=== PATIENT | female | born 1950 | race Caucasian/White ===

== ENCOUNTER → 2016-08-17 | Outpatient (CLI) | payer OTHER | LOC: BMCIMAGING 12:11 | DX: Z12.31 Encounter for screening mammogram for malignant neoplasm of breast (principal); Z80.3 Family history of malignant neoplasm of breast | CPT/HCPCS: G0202 ==

== ENCOUNTER → 2016-08-29 | Outpatient (CLI) | payer OTHER | LOC: BMCIMAGING 10:17 | PROVIDERS: ATTEND Family Medicine | DX: Z12.39 Encounter for other screening for malignant neoplasm of breast (principal); N63 Unspecified lump in breast | CPT/HCPCS: G0206 ==

== ENCOUNTER → 2016-09-14 | Outpatient (CLI) | payer OTHER | LOC: BMCIMAGING 09:49 | PROVIDERS: ATTEND Internal Medicine Rheumatology | DX: M16.0 Bilateral primary osteoarthritis of hip (principal) ==

== ENCOUNTER → 2016-11-21 | Outpatient (CLI) | payer OTHER | LOC: FIMAGING 09:38 | PROVIDERS: ATTEND Orthopaedic Surgery | DX: Z01.818 Encounter for other preprocedural examination (principal); M25.851 Other specified joint disorders, right hip ==

== ENCOUNTER 2016-11-26 05:56 | Inpatient (IN) | payer OTHER ==
[~2016-11-26 05:56] MED LIST: TRANEXAMIC ACID 1,180 MG in NS 100 ML IV ONE
[2016-11-26] MEDS ORDERED: TRANEXAMIC ACID 1,180 MG in NS 100 ML IV ONE (06:00)
[2016-11-26] MEDS ORDERED: ROPIVACAINE 0.2% 80 MG, EPINEPHrine 0.2 MG, KETOROLAC TROMETHAMINE 30 MG, morphINE 10 M... IU ONE (06:00)
[2016-11-26] MEDS ORDERED: TRANEXAMIC ACID 3,000 MG in NS 50 ML IRR ONE (06:00)
[2016-11-26] MEDS ORDERED: ACETAMINOPHEN 325 MG TAB PO ONE (06:15)
[2016-11-26] MEDS ORDERED: FAMOTIDINE 20 MG TAB PO ONE (06:15)
[2016-11-26] MEDS ORDERED: ceFAZolin 2 GM/DEXTROSE 100 ML IV ONE (06:15)
[2016-11-26] MEDS ORDERED: LIDOCAINE 1% 2 ML INJ ID PRN (06:16)
[2016-11-26] MEDS ORDERED: LR 1,000 ML IV ONE (06:16)
[2016-11-26] MEDS ORDERED: METOCLOPRAMIDE 10 MG/2 ML VIAL IVP PRN (06:58)
[2016-11-26] MEDS ORDERED: DIAZEPAM 5 MG TAB PO PRN (06:58)
[2016-11-26] MEDS ORDERED: traMADol 50 MG TAB PO PRN (06:58)
[2016-11-26] MEDS ORDERED: LACTULOSE 20 GM/30 ML UDCUP PO PRN (06:58)
[2016-11-26] MEDS ORDERED: POLYETHYLENE GLYCOL 3350 17 GM PKT PO PRN (06:58)
[2016-11-26] MEDS ORDERED: DIPHENOXYLATE/ATROPINE LOMOTIL 1 TAB PO PRN (06:58)
[2016-11-26] MEDS ORDERED: BISACODYL 10 MG SUPP PR PRN (06:58)
[2016-11-26] MEDS ORDERED: diphenhydrAMINE 25 MG CAP PO PRN (06:58)
[2016-11-26] MEDS ORDERED: ONDANSETRON 4 MG/2 ML VIAL IVP PRN ×2 (06:58→09:14)
[2016-11-26] MEDS ORDERED: TEMAZEPAM 15 MG CAP PO PRN (06:58)
[2016-11-26] MEDS ORDERED: PROMETHAZINE HCL 25 MG SUPPR PR PRN (06:58)
[2016-11-26] MEDS ORDERED: ONDANSETRON DISINTEGRATING 4 MG TAB PO PRN (06:58)
[2016-11-26] MEDS ORDERED: MAGNESIUM HYDROXIDE 30 ML UDCUP PO PRN (06:58)
[2016-11-26] MEDS ORDERED: PHARMACY PAIN CONSULT 1 EA MISC PRN (06:58)
[2016-11-26] MEDS ORDERED: PROMETHAZINE HCL 25 MG/ML INJ IVP PRN (06:58)
--- NOTE | 2016-11-26 06:58 | PDHPUP ---
History & Physical Update H&P update statement: This history and physical update is based on an assessment of the patient which was completed after admission or registration (within 24 hours), but prior to the surgery/procedure.
[2016-11-26] MEDS ORDERED: LR 1,000 ML IV SCH (07:00)
--- NOTE | 2016-11-26 07:02 | PDIAF ---
- Diagnosis Diagnosis: right hip djd Code Status: Full Code - Medication Management Discharge Medications: Medications to Continue on Transfer Levothyroxine [Synthroid 50 mcg (*)] 50 mcg PO WESA 02/22/12 [Last Taken Unknown ] Estradiol [Estradiol 1 MG (*)] 2 mg PO DAILY 11/06/16 [Last Taken 1 Day Ago ~01/01] Herbals/Supplements -Info Only 1 ea PO DAILY 11/06/16 [Last Taken 1 Week Ago ~] Levothyroxine [Synthroid 75 mcg (*)] 75 mcg PO SUMOTUTHFR 11/06/16 [Last Taken 1 Day Ago ~11/25/16] celeCOXIB [Celebrex (*)] 200 mg PO BID 11/06/16 [Last Taken 11/20/16] Discharge Medications: Refer to the Discharge Home Medication list for PRN reason. - Orders Services needed: Physical Therapy Diet Recommendation: no restrictions on diet Diet Texture: Regular Texture Diet Activity/Weight Bearing Restrictions: wbat. anterior hip precautions. daily dressing changes. no soaking. may shower without bandage. seek attn for increasing redness, swelling, drainage, discharge. f/u at two weeks - Follow Up Care Current Providers and Referrals: Norberto Blandon MD [Primary Care Provider] -
--- NOTE | 2016-11-26 07:26 | PDANEPAE ---
ANE History of Present Illness 66 year old female presents for right total hip replacement. ANE Past Medical History - Cardiovascular History Hx Hypertension: No Hx Arrhythmias: No Hx Chest Pain: No Hx Coronary Artery / Peripheral Vascular Disease: No Hx CHF / Valvular Disease: No Hx Palpitations: No - Pulmonary History Hx COPD: No Hx Asthma/Reactive Airway Disease: No Hx Recent Upper Respiratory Infection: No Hx Oxygen in Use at Home: No Hx Sleep Apnea: No Sleep Apnea Screening Result - Last Documented: Negative - Neurologic History Hx Cerebrovascular Accident: No Hx Seizures: No Hx Dementia: No - Endocrine History Hx Diabetes: No Hypothyroid: Yes Hyperthyroid: No Obesity: no - Renal History Hx Renal Disorders: No - Liver History Hx Hepatic Disorders: No - Neurological & Psychiatric Hx Hx Neurological and Psychiatric Disorders: No - Cancer History Hx Cancer: No - Congenital Disorder History Hx Congenital Disorders: No - GI History GERD: no Hx Gastrointestinal Disorders: No - Other Health History Other Health History: NONE - Chronic Pain History Chronic Pain: Yes (LOWER BACK) - Surgical History Prior Surgeries: NONE ANE Review of Systems Review of systems is: negative Review of Systems: - Exercise capacity Exercise capacity: >=4 METS METS (RN): 5 METS ANE Patient History - Allergies Allergies/Adverse Reactions: No Known Allergies Allergy (Unverified 02/22/12 17:16) - Home Medications Home medications: home medication list seen and reviewed Home Medications: Levothyroxine [Synthroid 50 mcg (*)] 50 mcg PO WESA 02/22/12 [Last Taken Unknown ] Estradiol [Estradiol 1 MG (*)] 2 mg PO DAILY 11/06/16 [Last Taken 1 Day Ago ~01/01] Levothyroxine [Synthroid 75 mcg (*)] 75 mcg PO SUMOTUTHFR 11/06/16 [Last Taken 1 Day Ago ~11/25/16] RX: Herbals/Supplements -Info Only 1 ea PO DAILY 11/06/16 [Last Taken 1 Week Ago ~11/19/16] celeCOXIB [Celebrex (*)] 200 mg PO BID 11/06/16 [Last Taken 11/20/16] - NPO status NPO Status: no food or drink >8 hours NPO Since - Liquids (Date): 11/25/16 NPO Since - Liquids (Time): 20:00 NPO Since - Solids (Date): 09/10/17 NPO Since - Solids (Time): 20:00 - Anes Hx Anes Hx: post operative nausea - Smoking Hx Smoking Status: Never smoked - Alcohol Use Alcohol Use: Rarely - Family Anes Hx Family Anes Hx: neg - N/A Family Hx Anesthesia Complications: EXTREME NAUSEA THROUGHOUT FAMILY ANE Labs/Vital Signs - Vital Signs Vital Signs: reviewed preoperatively; see RN documention for details Height: 165.1 cm Weight: 58.967 kg ANE Physical Exam - Airway Neck exam: decreased ROM (Decreased extension) Mallampati Score: Class 2 Mouth exam: normal dental/mouth exam - Pulmonary Pulmonary: no respiratory distress - Cardiovascular Cardiovascular: regular rate and rhythym - ASA Status ASA Status: II ANE Anesthesia Plan Anesthesia Plan: MAC, spinal (Back-up plan is General Anesthesia - if need to provide general anesthesia, will do TIVA due to PONV history)
[2016-11-26] MEDS ORDERED: MIDAZOLAM 2 MG/2 ML VIAL IVP ONE (07:27)
[2016-11-26] MEDS ORDERED: PROPOFOL/EMULSION 500 MG/50 ML BOTTLE IV ONE ×2 (07:33→09:56)
[2016-11-26] MEDS ORDERED: CALCIUM CHLORIDE 1 GM/10 ML INJ ONE (07:48)
[2016-11-26] MEDS ORDERED: THROMBIN (BOVINE) 5,000 UNIT VIAL TP ONE ×2 (07:48→09:02)
[2016-11-26] MEDS ORDERED: ceFAZolin 1 GM/5 ML SYR ONE (07:49)
[2016-11-26] MEDS ORDERED: DEXAMETHASONE 4 MG/ML VIAL ONE (09:09)
[2016-11-26] MEDS ORDERED: ONDANSETRON 4 MG/2 ML VIAL ONE (09:09)
[2016-11-26] MEDS ORDERED: PHENYLEPHRINE HCL 100 MCG/ML SYR ONE (09:11)
[2016-11-26] MEDS ORDERED: HYDROmorphONE/DILAUDID 1 MG/ML INJ IVP PRN (09:14)
[2016-11-26] MEDS ORDERED: LR 500 ML IV PRN (09:14)
[2016-11-26] MEDS ORDERED: NALOXONE HCL 0.4 MG/ML INJ IVP PRN (09:14)
[2016-11-26] MEDS ORDERED: fentaNYL 100 MCG/2 ML INJ IVP PRN (09:14)
[2016-11-26] MEDS ORDERED: LEVOTHYROXINE 75 MCG TAB PO SCH (11:00)
[2016-11-26] MEDS: TRANEXAMIC ACID 650 MG TAB PO SCH ×3 (13:10→23:28)
[2016-11-26] MEDS: SENNOSIDES/DOCUSATE SODIUM TAB PO SCH ×2 (13:10→20:25)
[2016-11-26] MEDS: ACETAMINOPHEN 325 MG TAB PO SCH ×3 (13:19→23:28)
[2016-11-26] MEDS: oxyCODONE IR 5 MG TAB PO PRN ×3 (13:19→20:43)
[2016-11-26] MEDS: ceFAZolin 2 GM/DEXTROSE 100 ML IV SCH ×2 (15:10→23:29)
--- NOTE | 2016-11-26 16:43 | POSTANESTH ---
Post Anesthetic Evaluation Cardiovascular Status: Normal, Stable, Similar to Pre-Op Cond Respiratory Status: Normal, Stable, Similar to Pre-op Cond. Level of Consciousness/Mental Status: Can Participate in Eval, Alert and Oriented Pain Control: Adequate, Prn Tx Ordered Nausea/Vomiting Control: Adequate, Prn Tx Ordered Complications Possibly Related to Anesthesia: None Noted
[2016-11-26] MEDS: FAMOTIDINE 20 MG TAB PO SCH (20:25)
[2016-11-26] MEDS: ASPIRIN 325 MG TAB PO SCH (20:28)
[2016-11-26 23:44] VITALS: PULSE 65
[2016-11-27] MEDS: ACETAMINOPHEN 325 MG TAB PO SCH (05:10)
[2016-11-27 06:00] LABS: HEMATOCRIT 29.1 % (38.0-47.0); HEMOGLOBIN 9.8 g/dL (12.6-16.3)
--- NOTE | 2016-11-27 07:09 | PDIAF ---
- Diagnosis Diagnosis: right hip djd Code Status: Full Code - Medication Management Discharge Medications: Medications to Continue on Transfer Levothyroxine [Synthroid 50 mcg (*)] 50 mcg PO WESA 02/22/12 [Last Taken Unknown ] Estradiol [Estradiol 1 MG (*)] 2 mg PO DAILY 11/06/16 [Last Taken 1 Day Ago ~01/01] Herbals/Supplements -Info Only 1 ea PO DAILY 11/06/16 [Last Taken 1 Week Ago ~] Levothyroxine [Synthroid 75 mcg (*)] 75 mcg PO SUMOTUTHFR 11/06/16 [Last Taken 1 Day Ago ~11/25/16] celeCOXIB [Celebrex (*)] 200 mg PO BID 11/06/16 [Last Taken 11/20/16] Aspirin [Aspirin 325 mg (*)] 325 mg PO DAILY tab 11/27/16 [Last Taken Unknown] oxyCODONE IR [Oxycodone Ir (*)] 5 - 10 mg PO Q3HRS PRN #70 tab 11/27/16 [Last Taken Unknown] Discharge Medications: Refer to the Discharge Home Medication list for PRN reason. - Orders Services needed: Physical Therapy Diet Recommendation: no restrictions on diet Diet Texture: Regular Texture Diet Activity/Weight Bearing Restrictions: wbat. anterior hip precautions. daily dressing changes. no soaking. may shower without bandage. seek attn for increasing redness, swelling, drainage, discharge. f/u at two weeks - Follow Up Care Current Providers and Referrals: Norberto Blandon MD [Primary Care Provider] -
[2016-11-27 07:52] VITALS: BP 110/64; RESP 20; TEMP 97.5; O2SAT 97
--- NOTE | 2016-11-27 07:52 | GDS ---
[f rep st] DISCHARGE SUMMARY ADMIT DIAGNOSIS: Right hip degenerative joint disease. DISCHARGE DIAGNOSIS: Right hip degenerative joint disease. PROCEDURE: Right total hip arthroplasty. HISTORY OF PRESENT ILLNESS: The patient is a 66-year-old woman with end-stage arthritis to her right hip. She has interference with her activities of daily living. Clinical and radiographic features are consistent with hip arthritis. Given her persistent symptoms, I have recommended operative inter vention. She understood the risks, benefits, alternatives, and wished to proceed. Written consent w as signed and placed in patient's chart. HOSPITAL COURSE: The patient was admitted to hospital floor after uncomplicated total hip arthroplas ty. She tolerated the procedure well. She had no postoperative complications. At the time of disch arge, she is tolerating an oral diet. Her pain is well controlled on oral medicines. She is voiding without difficulty. Dressings are clean, dry, and intact. She has no calf swelling, tenderness. N egative Juan's bilaterally. X-rays are stable with anatomic position, concentric reduction and no f racture. DISCHARGE ACTIVITY: She is weightbearing as tolerated. Anterior hip precautions. Daily dressing ch anges. No soaking or immersion. May shower without the bandage. FOLLOWUP: 2 weeks. DISCHARGE MEDICATIONS: Oxycodone 5 mg 1-2 every 3 hours p.r.n. pain and aspirin 325 mg p.o. daily. /[id number]/MODL
[2016-11-27] MEDS: ASPIRIN 325 MG TAB PO SCH (08:13)
[2016-11-27] MEDS: FAMOTIDINE 20 MG TAB PO SCH (08:14)
[2016-11-27] MEDS: SENNOSIDES/DOCUSATE SODIUM TAB PO SCH (08:14)
[2016-11-27] MEDS ORDERED: ESTRADIOL 1 MG TAB PO SCH (09:00)
--- NOTE | 2016-11-27 09:54 | ASMTCMCOM ---
CM Note CM Note Notes: Patient medically ready for for discharge. Physical Therapy recommending home with outpatient PT. Met with patient to discuss discharge plan, declines the need for Home Health Care, has good support at home. No CM needs identified at this time. CM available should something change. Date Signed: 11/27/2016 09:53 AM Electronically Signed By:Idalmis Foster RN
--- NOTE | 2016-11-27 14:41 | ASDISCHSUM ---
Discharge Information Plan Status:Home with No Needs Medically Cleared to Leave: Discharge Date:11/27/2016 10:25 AM CM D/C Disposition:Home, Routine, Self-Care ADT D/C Disposition:Home, Routine, Self-Care Projected Discharge Date:11/27/2016 10:25 AM Transportation at D/C:Family Discharge Delay Reason: Follow-Up Date:11/27/2016 10:25 AM Discharge Slot: Final Diagnosis: Placement Information Patient Contact Information Contact Name:RONY Relationship:Kyle Address: Work Phone: City: [facility] Phone: State/Zip Code: Email: Financial Information Financial Class: Primary Plan Desc:MEDICARE INPATIENT Primary Plan Number:[id number] Secondary Plan Desc:ANNITA RASHIDNITY Secondary Plan Number:[id number] Assessment Information BC CM Progress Note CM Note CM Note Notes: Patient medically ready for for discharge. Physical Therapy recommending home with outpatient PT. Met with patient to discuss discharge plan, declines the need for Home Health Care, has good support at home. No CM needs identified at this time. CM available should something change. Date Signed: 11/27/2016 09:53 AM Electronically Signed By:Idalmis Foster RN Intervention Information
[2016-11-28] MEDS ORDERED: LEVOTHYROXINE 50 MCG TAB PO SCH (07:00)
--- NOTE | 2016-11-30 14:15 | GOP ---
[f rep st] OPERATIVE REPORT DATE OF OPERATION: 11/26/2016 SURGEON: Guillermo Rm MD PREOPERATIVE DIAGNOSIS: Right hip degenerative joint disease. POSTOPERATIVE DIAGNOSIS: Right hip degenerative joint disease. PROCEDURE PERFORMED: Right total hip arthroplasty-MAKOplasty. FINDINGS: SPECIMENS: To pathology, the femoral head. INDICATIONS: The patient is a 66-year-old woman who has end-stage arthritis to her right hip. Clini gayathri and radiographic features are consistent with this. She has failed all attempts at conservative management. I have therefore recommended operative intervention with total hip arthroplasty. She un derstood the risks, benefits, and alternatives, and wished to proceed. Written consent was signed an d placed in the patient's chart. DESCRIPTION OF PROCEDURE: The patient was identified in the preanesthesia area. The right hip clear ly demarcated as operative site with indelible marker. She was given 2 g of Ancef intravenously en r oute to the operative suite. In the OR, general endotracheal anesthesia was administered. She was p ositioned in the supine position. The pelvis and both lower extremities were sterilely prepped and d raped in usual fashion. Appropriate time-out procedure was carried out. Attention was first turned to the left hemipelvis. A 2 cm incision was made over the iliac crest, 3 pins were placed into the p elvic ilium, and the pelvic reference array for the MAKOplasty protocol was affixed. Attention was t hen turned to the right hip. An anterior approach was made. Thick subcutaneous flaps were elevated. The fascia overlying the tensor fascia eber was then elevated, the tensor retracted in lateral dire ction. The underlying vascular structures were identified, ligated, and transected. The rectus was elevated off the anterior capsule, and Hohmann retractors were placed over the medial and superior as pect of the femoral neck. A T was made in the capsule. The retractors were placed into an intracaps ular position. A checkpoint was then placed. The bony wedge from the femoral neck was removed, as w ere the remnants from the femoral head. There was gross eburnation of the bone consistent with end-s tage hip arthritis. Retractors were placed, facilitating full visualization of the underlying acetab ulum. The remnants of the acetabular labrum were sharply excised. The bony landmarks to the acetabu lum were entered into the computer in standard fashion using the MAKOplasty assistance. A single-sta ge reaming using a 54 mm outer diameter reamer was then placed, with an opening angle of 40 degrees a nd anteversion of 20 degrees. A 54 mm titanium shell was impacted, confirmed to be fully seated. A single 6.5 mm cancellous screw was placed through the superior hole. The Trident X3 0-degree polyeth ylene liner was then placed and confirmed to be fully seated. Attention was then turned to the femur. This was delivered through the wound with use of retractors, soft tissue releases, and extension of the table to 25 degrees. The proximal canal was then opened. Serial broaching was carried out to a size 4 stem, and a trial reduction with 127 degree size 4 norma m was carried out. Ultimately, a size 4 stem was selected as the final implant. This was placed and impacted to the stable position across the opening of the trunnion. Serial trialing was carried out , and a 36 mm minus 5 mm Biolox head was then impacted across the cleansed trunnion. The hip was the n copiously irrigated, and reduced leg lengths were equal. Stability profile revealed full extension and external rotation to 90 degrees and traction without instability, and intraoperative fluoroscopy confirmed appropriate positioning of the components. The wounds were then irrigated with pulsatile lavage solution, closed in layers using 0 Vicryl, 2-0 M onocryl, and lior. The margins were instilled with a joint cocktail of ropivacaine, morphine, Tor adol, and epinephrine. A sterile compressive dressing was applied to both sides. The patient was aw akened, taken to recovery in good, stable condition. TOTAL TOURNIQUET TIME: None. COMPLICATIONS: None. IMPLANTS: The [place] Tritanium acetabular shell, size 54 mm; Trident X3 0-degree polyethylene inser t, 36 mm; 6.5 mm screw, 25 mm in length; accolade 227-degree neck angle hip stem size 4; and a Biolox Delta ceramic head, 36 mm minus 5 mm neck length. DISPOSITION: To the recovery room then the floor. She is weightbearing. Range of motion as tolerat ed with anterior hip precautions, and will follow standard recovery. /[id number]/MODL
== END 2016-11-27 10:25 | disposition home or self-care (01) | DRG 470 ==
LOC: F3N 05:56
PROVIDERS: ADMIT Orthopaedic Surgery; ATTEND Orthopaedic Surgery
PROC: 0SR904Z Replacement of Right Hip Joint with Ceramic on Polyethylene Synthetic Substitute, Open Approach (ICD-10-PCS; principal; 2016-11-26 14:15)
DX: M16.11 Unilateral primary osteoarthritis, right hip (principal); E03.9 Hypothyroidism, unspecified
CPT/HCPCS: 97116-GP; 97161-GP; C1713; G8978-GP-CI; G8979-GP-CI; G8980-GP-CI; J0171; J0690; J1100; J1885; J2250; J2370; J2405; J2704; J2795

== ENCOUNTER → 2017-01-16 | Outpatient (CLI) | payer OTHER | LOC: BMCIMAGING 10:20 | PROVIDERS: ATTEND Orthopaedic Surgery | DX: Z47.1 Aftercare following joint replacement surgery (principal); Z96.641 Presence of right artificial hip joint; M16.12 Unilateral primary osteoarthritis, left hip ==

== ENCOUNTER → 2017-02-25 | Outpatient (CLI) | payer OTHER | LOC: FIMAGING 10:39 | PROVIDERS: ATTEND Orthopaedic Surgery | DX: M16.12 Unilateral primary osteoarthritis, left hip (principal); Z96.641 Presence of right artificial hip joint ==

== ENCOUNTER 2017-03-04 05:58 | Inpatient (IN) | payer OTHER ==
[2017-03-04] MEDS ORDERED: ROPIVACAINE 0.2% 80 MG, EPINEPHrine 0.2 MG, KETOROLAC TROMETHAMINE 30 MG, morphINE 10 M... IU ONE (06:00)
[2017-03-04] MEDS ORDERED: TRANEXAMIC ACID 1,200 MG in NS 100 ML IV ONE (06:00)
--- NOTE | 2017-03-04 06:18 | PDANEPAE ---
ANE History of Present Illness 66 yo female with OA s/p R MANJULA in Nov 2016 now for L MANJULA. ANE Past Medical History - Cardiovascular History Hx Hypertension: No Hx Arrhythmias: No Hx Chest Pain: No Hx Coronary Artery / Peripheral Vascular Disease: No Hx CHF / Valvular Disease: No Hx Palpitations: No - Pulmonary History Hx COPD: No Hx Asthma/Reactive Airway Disease: No Hx Recent Upper Respiratory Infection: No Hx Oxygen in Use at Home: No Hx Sleep Apnea: No Sleep Apnea Screening Result - Last Documented: Negative - Neurologic History Hx Cerebrovascular Accident: No Hx Seizures: No Hx Dementia: No - Endocrine History Hx Diabetes: No Hypothyroid: Yes Obesity: no Endocrine History Comment: hypothyroidism - Renal History Hx Renal Disorders: No Renal History Comment: recent hx of uti - Liver History Hx Hepatic Disorders: No - Neurological & Psychiatric Hx Hx Neurological and Psychiatric Disorders: No - Cancer History Hx Cancer: No - Congenital Disorder History Hx Congenital Disorders: No - GI History Hx Gastrointestinal Disorders: No - Other Health History Other Health History: OA - Chronic Pain History Chronic Pain: Yes (LOWER BACK) - Surgical History Prior Surgeries: NONE ANE Review of Systems Review of systems is: negative Review of Systems: - Exercise capacity METS (RN): 5 METS - Systems Constitutional: Reports: no symptoms Cardiac: Reports: no symptoms Respiratory: Reports: no symptoms Genitourinary: Reports: other (UTI 3 months ago around the time of last MANJULA.) ANE Patient History - Allergies Allergies/Adverse Reactions: No Known Allergies Allergy (Verified 02/04/17 10:44) - Home Medications Home medications: home medication list seen and reviewed Home Medications: RX: Levothyroxine [Synthroid 50 mcg (*)] 50 mcg PO WESA 02/22/12 [Last Taken ] RX: Estradiol [Estradiol 1 MG (*)] 2 mg PO DAILY 11/06/16 [Last Taken 03/03/17] RX: Herbals/Supplements -Info Only 1 ea PO DAILY 11/06/16 [Last Taken 1 Week Ago ~11/19/16] RX: Levothyroxine [Synthroid 75 mcg (*)] 75 mcg PO SUMOTUTHFR 11/06/16 [Last Taken 03/03/17] RX: celeCOXIB [Celebrex (*)] 200 mg PO BID 11/06/16 [Last Taken 02/25/17] - NPO status NPO Status: no food or drink >8 hours - Anes Hx Anes Hx: post operative nausea (No nausea after MANJULA in ) - Smoking Hx Smoking Status: Never smoked Marijuana use: No - Family Anes Hx Family Anes Hx: neg - N/A Family Hx Anesthesia Complications: EXTREME NAUSEA THROUGHOUT FAMILY ANE Labs/Vital Signs - Labs - CBC HGB: no anemia in labs from 11/01 - Vital Signs Blood Pressure: 143/77 Heart Rate: 69 O2 Sat (%): 99 Height: 165.1 cm Weight: 58.967 kg ANE Physical Exam - Airway Neck exam: FROM Mallampati Score: Class 2 Mouth exam: normal dental/mouth exam - Pulmonary Pulmonary: clear to auscultation - Cardiovascular Cardiovascular: regular rate and rhythym - ASA Status ASA Status: II ANE Anesthesia Plan Anesthesia Plan: spinal
--- NOTE | 2017-03-04 06:36 | PDIAF ---
- Diagnosis Diagnosis: left hip djd Code Status: Full Code - Medication Management Discharge Medications: Medications to Continue on Transfer Levothyroxine [Synthroid 50 mcg (*)] 50 mcg PO WESA 02/22/12 [Last Taken Unknown ] Estradiol [Estradiol 1 MG (*)] 2 mg PO DAILY 11/06/16 [Last Taken 1 Day Ago ~01/01] Herbals/Supplements -Info Only 1 ea PO DAILY 11/06/16 [Last Taken 1 Week Ago ~] Levothyroxine [Synthroid 75 mcg (*)] 75 mcg PO SUMOTUTHFR 11/06/16 [Last Taken 1 Day Ago ~11/25/16] celeCOXIB [Celebrex (*)] 200 mg PO BID 11/06/16 [Last Taken 11/20/16] Discharge Medications: Refer to the Discharge Home Medication list for PRN reason. - Orders Services needed: Home Care, Physical Therapy Home Care Face to Face: I certify that this patient was under my care and that I had the required [id number]-[id number] encounter meeting the encounter requirements on the discharge day. My findings support the fact that the patient is homebound as defined in Home Care Face to Face Continued: CMS Chapter 7 Medicare Benefits Manual 30.1.1 , The condition of the patient is such that there exists a normal inability to leave home and consequently, leaving home would require a considerable and taxing effort. Activity/Weight Bearing Restrictions: wbat. anterior hip precautions. daily dressing changes. ice prn. mann hose x 2 weeks. f/u at two weeks as previously scheduled. aspirin 325 mg po daily for six weeks. seek attn for increasing pain, cp, sob, drainage. fevers or other focal complaints - Follow Up Care Current Providers and Referrals: Norberto Blandon MD [Primary Care Provider] -
[2017-03-04] MEDS ORDERED: ACETAMINOPHEN 325 MG TAB PO ONE (06:49)
[2017-03-04] MEDS ORDERED: ceFAZolin 2 GM/SWFI 2 GM/20 ML SYR IVP ONE (06:49)
[2017-03-04] MEDS ORDERED: FAMOTIDINE 20 MG TAB PO ONE (06:49)
[2017-03-04] MEDS ORDERED: LIDOCAINE 1% 2 ML INJ ID PRN (06:50)
[2017-03-04] MEDS ORDERED: LR 1,000 ML IV ONE (06:50)
[2017-03-04] MEDS ORDERED: CALCIUM CHLORIDE 1 GM/10 ML INJ ONE (07:48)
[2017-03-04] MEDS ORDERED: THROMBIN (BOVINE) 5,000 UNIT VIAL TP ONE (07:48)
[2017-03-04] MEDS ORDERED: ceFAZolin 1 GM/5 ML SYR ONE (07:49)
[2017-03-04] MEDS ORDERED: PROPOFOL/EMULSION 500 MG/50 ML BOTTLE IV ONE (08:11)
[2017-03-04] MEDS ORDERED: fentaNYL 100 MCG/2 ML INJ ONE (08:11)
[2017-03-04] MEDS ORDERED: ONDANSETRON 4 MG/2 ML VIAL ONE (08:13)
[2017-03-04] MEDS ORDERED: DEXAMETHASONE 4 MG/ML VIAL ONE (08:13)
[2017-03-04] MEDS ORDERED: LIDOCAINE 2% 5 ML SDV ONE (08:13)
[2017-03-04] MEDS ORDERED: PROPOFOL 200 MG/20 ML VIAL ONE (09:30)
[2017-03-04] MEDS ORDERED: PHENYLEPHRINE HCL 100 MCG/ML SYR ONE (09:33)
[2017-03-04] MEDS ORDERED: ONDANSETRON DISINTEGRATING 4 MG TAB PO PRN (09:51)
[2017-03-04] MEDS ORDERED: DIAZEPAM 5 MG TAB PO PRN (09:51)
[2017-03-04] MEDS ORDERED: OXYCODONE/APAP 5/325 TAB PO PRN (09:51)
[2017-03-04] MEDS ORDERED: BISACODYL 10 MG SUPP PR PRN (09:51)
[2017-03-04] MEDS ORDERED: LACTULOSE 20 GM/30 ML UDCUP PO PRN (09:51)
[2017-03-04] MEDS ORDERED: diphenhydrAMINE 25 MG CAP PO PRN (09:51)
[2017-03-04] MEDS ORDERED: POLYETHYLENE GLYCOL 3350 17 GM PKT PO PRN (09:51)
[2017-03-04] MEDS ORDERED: DIPHENOXYLATE/ATROPINE LOMOTIL 1 TAB PO PRN (09:51)
[2017-03-04] MEDS ORDERED: NALOXONE HCL 0.4 MG/ML INJ IVP PRN (09:51)
[2017-03-04] MEDS ORDERED: METOCLOPRAMIDE 10 MG/2 ML VIAL IVP PRN (09:51)
[2017-03-04] MEDS ORDERED: ONDANSETRON 4 MG/2 ML VIAL IVP PRN (09:51)
[2017-03-04] MEDS ORDERED: TEMAZEPAM 15 MG CAP PO PRN (09:51)
[2017-03-04] MEDS ORDERED: MAGNESIUM HYDROXIDE 30 ML UDCUP PO PRN (09:51)
[2017-03-04] MEDS ORDERED: fentaNYL 100 MCG/2 ML INJ IVP PRN (09:51)
[2017-03-04] MEDS ORDERED: PROMETHAZINE HCL 25 MG/ML INJ IVP PRN ×2 (09:51)
[2017-03-04] MEDS ORDERED: DIAZEPAM 10 MG/2 ML SYR IVP PRN (09:51)
[2017-03-04] MEDS ORDERED: PROMETHAZINE HCL 25 MG SUPPR PR PRN (09:51)
[2017-03-04] MEDS ORDERED: LR 1,000 ML IV SCH (10:00)
--- NOTE | 2017-03-04 10:17 | POSTANESTH ---
Post Anesthetic Evaluation Cardiovascular Status: Normal, Stable Respiratory Status: Normal, Stable Level of Consciousness/Mental Status: Can Participate in Eval, Alert and Oriented Pain Control: Adequate, Prn Tx Ordered Nausea/Vomiting Control: Adequate, Prn Tx Ordered Complications Possibly Related to Anesthesia: None Noted (Pt with no sensation in legs secondary to spinal block. Pt reports not feeling cold as she did after her surgery in November. Will keep IVF rate a little higher in PACU to encourage good UOP given h/o UTI after surgery in November. Will need to assess for bladder fullness prior to going to the floor.)
[2017-03-04] MEDS: TRANEXAMIC ACID 650 MG TAB PO SCH ×2 (12:08→18:08)
[2017-03-04] MEDS: oxyCODONE IR 5 MG TAB PO PRN ×2 (12:20→14:58)
[2017-03-04] MEDS: ACETAMINOPHEN 325 MG TAB PO SCH ×2 (12:47→18:09)
[2017-03-04] MEDS: ceFAZolin 2 GM/DEXTROSE 100 ML IV SCH ×2 (13:42→21:54)
--- NOTE | 2017-03-04 13:43 | ASMTCMCOM ---
CM Note CM Note Notes: Chart treviewed. Orders for Home health noted. Met with patient and . Verified they live in [place]. Likely dc tomorrow. No therapy notes in chart yet. Referrals made to several agencies. CM to follow. Date Signed: 03/04/2017 01:43 PM Electronically Signed By:Frances Plummer RN
[2017-03-04] MEDS: ASPIRIN 325 MG TAB PO SCH (21:54)
[2017-03-04] MEDS: FAMOTIDINE 20 MG TAB PO SCH (21:54)
[2017-03-04] MEDS: SENNOSIDES/DOCUSATE SODIUM TAB PO SCH (21:54)
[2017-03-05] MEDS: ACETAMINOPHEN 325 MG TAB PO SCH ×3 (00:14→11:17)
[2017-03-05] MEDS: TRANEXAMIC ACID 650 MG TAB PO SCH (02:26)
[2017-03-05 05:07] LABS: HEMATOCRIT 31.6 % (38.0-47.0); HEMOGLOBIN 11.3 g/dL (12.6-16.3)
[2017-03-05] MEDS ORDERED: LEVOTHYROXINE 75 MCG TAB PO SCH (06:00)
--- NOTE | 2017-03-05 07:26 | PDIAF ---
- Diagnosis Diagnosis: left hip djd Code Status: Full Code - Medication Management Discharge Medications: Medications to Continue on Transfer Levothyroxine [Synthroid 50 mcg (*)] 50 mcg PO WESA 02/22/12 [Last Taken ] Estradiol [Estradiol 1 MG (*)] 2 mg PO DAILY 11/06/16 [Last Taken 03/03/17] Herbals/Supplements -Info Only 1 ea PO DAILY 11/06/16 [Last Taken 1 Week Ago ~] Levothyroxine [Synthroid 75 mcg (*)] 75 mcg PO SUMOTUTHFR 11/06/16 [Last Taken 03/03/17] celeCOXIB [Celebrex (*)] 200 mg PO BID 11/06/16 [Last Taken 02/25/17] Aspirin [Aspirin 325 mg (*)] 325 mg PO DAILY tab 03/05/17 [Last Taken Unknown] oxyCODONE IR [Oxycodone Ir (*)] 5 - 10 mg PO Q3HRS PRN #90 tab 03/05/17 [Last Taken Unknown] Discharge Medications: Refer to the Discharge Home Medication list for PRN reason. - Orders Services needed: Home Care, Physical Therapy Home Care Face to Face: I certify that this patient was under my care and that I had the required [id number] encounter meeting the encounter requirements on the discharge day. My findings support the fact that the patient is homebound as defined in Home Care Face to Face Continued: CMS Chapter 7 Medicare Benefits Manual 30.1.1 , The condition of the patient is such that there exists a normal inability to leave home and consequently, leaving home would require a considerable and taxing effort. Diet Recommendation: no restrictions on diet Diet Texture: Regular Texture Diet Activity/Weight Bearing Restrictions: wbat. anterior hip precautions. daily dressing changes. ice prn. mann hose x 2 weeks. f/u at two weeks as previously scheduled. aspirin 325 mg po daily for six weeks. seek attn for increasing pain, cp, sob, drainage. fevers or other focal complaints - Follow Up Care Current Providers and Referrals: Norberto Blandon MD [Primary Care Provider] - Guillermo Rm MD [Medical Doctor] -
[2017-03-05 07:54] VITALS: BP 106/64; PULSE 71; RESP 16; TEMP 97.5; O2SAT 97
[2017-03-05] MEDS: ASPIRIN 325 MG TAB PO SCH (08:06)
[2017-03-05] MEDS: SENNOSIDES/DOCUSATE SODIUM TAB PO SCH (08:06)
[2017-03-05] MEDS: FAMOTIDINE 20 MG TAB PO SCH (08:07)
[2017-03-05] MEDS ORDERED: ESTRADIOL 1 MG TAB PO SCH (09:00)
--- NOTE | 2017-03-05 09:55 | ASMTCMCOM ---
CM Note CM Note Notes: Met with patient regarding discharge plan of care. Patient not completely sure she wants Home Health Care but did agree to an evaluation from Physical Therapy. Referrals were sent on Saturday to a couple of home cares in [place], patient has chosen [facility]. Final orders sent to [facility], alerted their intake of orders and discharge. Patient states she has good support from family at home. Discharge Plan: Discharge home today with [facility], Physical Therapy. Family to transport. Date Signed: 03/05/2017 09:55 AM Electronically Signed By:Idalmis Foster RN
--- NOTE | 2017-03-05 11:47 | ASDISCHSUM ---
Discharge Information Plan Status:Home with Home Health Medically Cleared to Leave: Discharge Date:03/05/2017 11:30 AM CM D/C Disposition:Home Health Service ADT D/C Disposition:Home Health Service Projected Discharge Date:03/05/2017 11:00 AM Transportation at D/C:Family Discharge Delay Reason: Follow-Up Date:03/05/2017 11:00 AM Discharge Slot: Final Diagnosis: Placement Information Referral Type:*Home Health Care Services Referral ID:[id number] Provider Name:[facility] [place] Address 1[address] Address 2:[facility] [address] City:[place] Selection Factors: State:[place] Patient Contact Information Contact Name:RONY Relationship:Son Address: Work Phone: City: [facility] Phone: [facility] Code: Email: Financial Information Financial Class: Primary Plan Desc:MEDICARE INPATIENT Primary Plan Number:[id number] Secondary Plan Desc:[facility] INDEMNITY Secondary Plan Number:[id number] Assessment Information [facility] Progress Note CM Note CM Note Notes: Chart treviewed. Orders for Home health noted. Met with patient and . Verified they live in [place]. Likely dc tomorrow. No therapy notes in chart yet. Referrals made to several agencies. CM to follow. Date Signed: 03/04/2017 01:43 PM Electronically Signed By:Frances Plummer RN [facility] CM Progress Note CM Note CM Note Notes: Met with patient regarding discharge plan of care. Patient not completely sure she wants Home Health Care but did agree to an evaluation from Physical Therapy. Referrals were sent on Saturday to a couple of home cares in [place], patient has chosen [facility]. Final orders sent to [facility], alerted their intake of orders and discharge. Patient states she has good support from family at home. Discharge Plan: Discharge home today with [facility], Physical Therapy. Family to transport. Date Signed: 03/05/2017 09:55 AM Electronically Signed By:Idalmis Foster RN Intervention Information
--- NOTE | 2017-03-05 17:42 | GDS ---
[f rep st] DISCHARGE SUMMARY ADMIT DIAGNOSIS: Left hip degenerative joint disease. DISCHARGE DIAGNOSIS: Left hip degenerative joint disease. PROCEDURE: Left total hip arthroplasty. HISTORY OF PRESENT ILLNESS: Sonia is a 66-year-old woman, who has undergone previous right total h ip replacement. 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 She presents today for left hip replac ement. She understands the risks, benefits, alternatives, and wished to proceed. Written consent wa s signed and placed in patient's chart. HOSPITAL COURSE: The patient was admitted overnight after an uncomplicated total hip arthroplasty. She tolerated the procedure well. At the time of discharge, she is tolerating an oral diet. Pain is well controlled on oral medicines. She is voiding/stooling without difficulty. Incision is clean, dry, and intact. She has no calf swelling, tenderness. Negative Juan's bilaterally. X-rays demons trate stable anatomic alignment with concentric reduction and no fracture. DISCHARGE ACTIVITY: Weightbearing as tolerated. Anterior hip precautions. Daily dressing changes. No soaking or immersion. Follow up for increasing redness, swelling, drainage, discharge, other foc al complaints. DISCHARGE MEDICATIONS: Oxycodone 5 mg 1-2 every 4 hours p.r.n. pain, aspirin 325 mg p.o. daily. /[id number]/MODL
[2017-03-06] MEDS ORDERED: LEVOTHYROXINE 50 MCG TAB PO SCH (06:00)
--- NOTE | 2017-03-06 14:56 | GOP ---
[f rep st] OPERATIVE REPORT DATE OF OPERATION: 03/04/2017 SURGEON: Guillermo Rm MD NUCLEAR PLANT OPERATOR: Jam Leon, FOOD SERVICE KITCHEN SUPERVISOR, KEELER POLYGRAPH OPERATOR, surgical aide, was medical necessity for the entirety of the case. Also present is MAGALY Hall. PREOPERATIVE DIAGNOSIS: Left hip degenerative joint disease. POSTOPERATIVE DIAGNOSIS: Left hip degenerative joint disease. PROCEDURE PERFORMED: Left total hip arthroplasty, anterior, MAKOplasty. FINDINGS: SPECIMENS: To Pathology, femoral head. ESTIMATED BLOOD LOSS: 100 cc. INDICATIONS: The patient is a 66-year-old woman who is known to me for previous right total hip repl acement. 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 She returns for scheduled left total hip repl acement. She understood the risks, benefits, alternatives, and wished to proceed. Written consent wa s signed and placed in the patient's chart. DESCRIPTION OF PROCEDURE: The patient was identified in the preanesthesia area. The left hip clearl y demarcated as operative site with indelible marker. She was given 2 g of Ancef intravenously en ro telida to the operative suite. In the OR, general endotracheal anesthesia was administered. Attention was turned to the pelvis and both lower extremities, which were sterilely prepped and draped in usual fashion. Appropriate time-out procedure was carried out. The pelvis and lower extremities were norma rilely prepped and draped. Attention was first turned to the right hemipelvis. A 2 cm incision was made over the ASIS and 3 pins were placed into the pelvic ilium. The pelvic reference array was then affixed. Attention was then turned to the left hip. An anterior approach was made. Thick subcutan eous flaps were elevated. The fascia was then elevated off the tensor. The tensor was retracted in a lateral position. The underlying vascular structures were identified, cauterized, ligated, and tra nsected. The rectus elevated off the anterior aspect of the capsule. Retractors were then placed in an extracapsular position over the medial and superior aspects of the femoral neck. A "T" was made in the capsule. Retractor was then placed in an intracapsular position. Acetabular checkpoint was p laced. A bony wedge was removed from the femoral neck, and the head withdrawn. The remnants of the acetabular labrum were sharply excised. Using the MAKOplasty robot. A 54 mm reamer was placed in an opening angle of 40 degrees and anteversion of 20 to the appropriate depth. This was replaced with a Tritanium acetabular shell, 54 mm in diameter. A 36 mm X3 liner was then impacted, confirmed to be fully seated. Attention was then turned to the femur. This was delivered through the use of extens ion of the table. Soft tissue releases. The proximal canal was opened and serial broaching carried out to a size 3 stem. Trial reduction with a size 3 stem, 36 mm +0 mm neck length revealed equal leg length distributions, stability through the flexion-extension arc with full extension, external rota tion to 90 degrees. The trial femoral components were withdrawn. The final size 3 stem was then imp acted, confirmed to be fully seated. A 36 mm +0 mm neck length Biolox head was then impacted. The h ip was copiously irrigated and reduced with stability profile the same as previous. The underlying s oft tissues were injected with a joint cocktail of ropivacaine, morphine, Toradol, and epinephrine. The fascia closed using 0 Vicryl, subcutaneous tissue closed using 2-0 Monocryl, and the skin stapled . Sterile dressings were applied. The patient was awakened, extubated, taken to recovery room in go od stable condition. TOTAL TOURNIQUET TIME: None. COMPLICATIONS: None. IMPLANTS: Abraham Tritanium acetabular shell, size 54 mm; Trident X3, 0 degree polyethylene insert, 36 mm; Accolade 227 degree neck angle; hip stem size 3; and Biolox Delta ceramic head, 36 mm +0 mm ne ck length. DISPOSITION: To the recovery room, then floor. /[id number]/MODL
== END 2017-03-05 11:30 | disposition home health service (06) | DRG 470 ==
LOC: F3N 05:58
PROVIDERS: ADMIT Orthopaedic Surgery; ATTEND Orthopaedic Surgery
PROC: 0SRB04Z Replacement of Left Hip Joint with Ceramic on Polyethylene Synthetic Substitute, Open Approach (ICD-10-PCS; principal; 2017-03-04 08:15)
DX: M16.12 Unilateral primary osteoarthritis, left hip (principal); E03.9 Hypothyroidism, unspecified; Z96.641 Presence of right artificial hip joint
CPT/HCPCS: 97116-GP; 97161-GP; 97165-GO; 97530-GP; G8978-GP-CI; G8979-GP-CI; G8980-GP-CI; G8987-GO-CI; G8988-GO-CI; G8989-GO-CI; J0171; J0690; J1100; J1885; J2370; J2405; J2704; J2795; J3010

== ENCOUNTER → 2017-03-15 | Outpatient (CLI) | payer OTHER | LOC: BMCIMAGING 09:01 | PROVIDERS: ATTEND Physician Assistant | DX: Z47.1 Aftercare following joint replacement surgery (principal); Z96.641 Presence of right artificial hip joint ==

== ENCOUNTER → 2017-04-16 | Outpatient (CLI) | payer OTHER | LOC: BMCIMAGING 09:56 | PROVIDERS: ATTEND Physician Assistant | DX: Z47.1 Aftercare following joint replacement surgery (principal); Z96.642 Presence of left artificial hip joint ==

== ENCOUNTER → 2017-05-28 | Outpatient (CLI) | payer OTHER | LOC: BMCIMAGING 09:52 | PROVIDERS: ATTEND Physician Assistant | DX: Z47.1 Aftercare following joint replacement surgery (principal); Z96.643 Presence of artificial hip joint, bilateral ==

== ENCOUNTER → 2017-08-19 | Outpatient (CLI) | payer OTHER | LOC: BMCIMAGING 12:15 | PROVIDERS: ATTEND Internal Medicine Endocrinology, Diabetes & Metabolism | DX: Z12.31 Encounter for screening mammogram for malignant neoplasm of breast (principal); Z80.3 Family history of malignant neoplasm of breast ==

== ENCOUNTER → 2017-12-16 | Outpatient (CLI) | payer OTHER | LOC: BMCIMAGING 11:03 | PROVIDERS: ATTEND Orthopaedic Surgery | DX: Z47.1 Aftercare following joint replacement surgery (principal); Z96.642 Presence of left artificial hip joint ==

== ENCOUNTER → 2018-08-25 | Outpatient (CLI) | payer OTHER | LOC: BMCIMAGING 11:54 ==